=== PATIENT | female | born 1940 | race Caucasian/White ===

== ENCOUNTER → 2017-10-13 | Outpatient (CLI) | payer MEDICARE, BC ==
[2017-10-13 13:15] LABS: EOS # 0.3 (0.04-0.40); HEMATOCRIT 37.1 % (37.0-47.0); HEMOGLOBIN 11.9 g/dL (12.5-16.0); LYMPH# 2.1 (1.50-4.00); MEAN CELL VOLUME 91 fl (78-100); MEAN CORPUSCULAR HEMOGLOBIN 29 pg (27-31); MEAN CORPUSCULAR HGB CONC 32 g/dL (33-37); MEAN PLATELET VOLUME 11.2 fl (7.4-10.4); MONO # 1.1 (0.20-0.80); PLATELET COUNT 391 K/mm3 (130-400); RED BLOOD COUNT 4.08 M/mm3 (4.10-5.30); RED CELL DISTRIBUTION WIDTH 13.5 % (11.5-14.5); WHITE BLOOD COUNT 14.8 K/mm3 (4.8-10.8)
[2017-10-13 13:18] LABS: NEU # 11.4 (1.40-6.50)
[2017-10-13 13:24] LABS: BUN/CREATININE RATIO 22.3 (6.0-26.0); CALCIUM 9.2 mg/dL (8.4-10.2); POTASSIUM 3.6 mmol/L (3.6-5.0)
== END ==
LOC: RAD 12:35
PROVIDERS: Physician Assistant
DX: R91.8 Other nonspecific abnormal finding of lung field (principal); R06.02 Shortness of breath; R06.2 Wheezing

== ENCOUNTER 2017-10-17 02:18 | Emergency (ER) | payer MEDICARE, BC ==
[~2017-10-17] VITALS: Ht 165.1 cm; Wt 56.8 kg
[2017-10-17] MEDS ORDERED: LEVOTHYROXINE0.05 MG PO (02:37)
[2017-10-17] MEDS ORDERED: PROAIR HFA0.09 MG/AC IH (02:37)
[2017-10-17] MEDS ORDERED: ALBUTEROL2.5 MG/3 M IH (02:38)
[2017-10-17] MEDS ORDERED: PREDNISONE20 M1 PO (02:39)
[2017-10-17] MEDS ORDERED: LEVAQUIN 5500 MG/TA1 PO (02:39)
[2017-10-17] MEDS ORDERED: NYSTATIN UD5 ML/CUP PO (03:31)
[2017-10-17 03:40] VITALS: BP 158/82
== END 2017-10-17 03:40 | disposition home or self-care (01) ==
LOC: ED 02:18
DX: B37.0 Candidal stomatitis (principal); G47.00 Insomnia, unspecified; T50.905A Adverse effect of unspecified drugs, medicaments and biological substances, initial encounter; R07.0 Pain in throat; J18.9 Pneumonia, unspecified organism; J44.9 Chronic obstructive pulmonary disease, unspecified; J84.10 Pulmonary fibrosis, unspecified; Z79.899 Other long term (current) drug therapy

== ENCOUNTER → 2017-10-27 | Outpatient (CLI) | payer MEDICARE, BC ==
[2017-10-17 03:40] VITALS: BP 158/82
[~2017-10-27] MED LIST: ALBUTEROL2.5 MG/3 M IH; LEVAQUIN 5500 MG/TA1 PO; LEVOTHYROXINE0.05 MG PO; NYSTATIN UD5 ML/CUP PO; PREDNISONE20 M1 PO; PROAIR HFA0.09 MG/AC IH
[2017-10-27 10:47] LABS: HEMOGLOBIN 12.6 g/dL (12.5-16.0); MEAN CELL VOLUME 90 fl (78-100); MEAN CORPUSCULAR HEMOGLOBIN 29 pg (27-31); MEAN CORPUSCULAR HGB CONC 32 g/dL (33-37); PLATELET COUNT 295 K/mm3 (130-400); RED BLOOD COUNT 4.32 M/mm3 (4.10-5.30); RED CELL DISTRIBUTION WIDTH 14.2 % (11.5-14.5); WHITE BLOOD COUNT 19.8 K/mm3 (4.8-10.8)
[2017-10-27 11:00] LABS: ALBUMIN 3.2 g/dL (3.5-5.0); BUN/CREATININE RATIO 26.5 (6.0-26.0); CALCIUM 9.6 mg/dL (8.4-10.2); POTASSIUM 3.6 mmol/L (3.6-5.0); TOTAL BILIRUBIN 0.2 mg/dL (0.2-1.3); TOTAL PROTEIN 6.4 g/dL (6.3-8.2)
[2017-10-27 12:22] LABS: LYMPHOCYTE 7 % (20-51); MONOCYTE 4 % (3-10); NEUTROPHILS 88 % (42-75)
[2017-10-27 13:27] LABS: URINE APPEARANCE HAZY; URINE COLOR YELLOW; URINE PROTEIN(semi-quant) TRACE mg/dL (NEGATIVE)
[2017-10-27 13:28] LABS: URINE BILIRUBIN NEGATIVE (NEGATIVE); URINE BLOOD NEGATIVE (NEGATIVE); URINE GLUCOSE NEGATIVE (NEGATIVE); URINE KETONE NEGATIVE (NEGATIVE); URINE LEUKOCYTE ESTERASE TRACE (NEGATIVE); URINE NITRATE NEGATIVE (NEGATIVE); URINE UROBILINOGEN NORMAL (NORMAL)
== END ==
LOC: VAS 10:13 → LAB 10:13
PROVIDERS: Family Medicine
DX: R22.1 Localized swelling, mass and lump, neck (principal); R22.2 Localized swelling, mass and lump, trunk; G62.9 Polyneuropathy, unspecified; Z01.419 Encounter for gynecological examination (general) (routine) without abnormal findings; E03.9 Hypothyroidism, unspecified; R73.02 Impaired glucose tolerance (oral); E55.9 Vitamin D deficiency, unspecified; B37.0 Candidal stomatitis

== ENCOUNTER → 2017-10-30 | Outpatient (CLI) | payer MEDICARE, BC ==
[2017-10-17 03:40] VITALS: BP 158/82
== END ==
LOC: RAD 10:54
DX: C77.0 Secondary and unspecified malignant neoplasm of lymph nodes of head, face and neck (principal); C77.3 Secondary and unspecified malignant neoplasm of axilla and upper limb lymph nodes; J98.59 Other diseases of mediastinum, not elsewhere classified; R59.0 Localized enlarged lymph nodes; R91.8 Other nonspecific abnormal finding of lung field; J43.9 Emphysema, unspecified; I65.21 Occlusion and stenosis of right carotid artery
CPT/HCPCS: Q9967